=== PATIENT | female | born 1975 | race Hispanic/Latino ===

== ENCOUNTER 2022-07-05 09:59 | Emergency (ER) | payer OTHER ==
[~2022-07-05] VITALS: Ht 160 cm; Wt 79.4 kg
[2022-07-05 10:12] VITALS: BP 149/88
[2022-07-05] MEDS ORDERED: CYCL5TAB PO (10:12)
[2022-07-05] MEDS ORDERED: KETO10TA2 PO (10:12)
[2022-07-05] MEDS ORDERED: KETOROLAC 15MG/ML VIAL (15MG/ML) IM ONE (10:30)
[2022-07-05] MEDS ORDERED: CYCLOBENZAPRINE HCL 10 MG TABLET PO ONE (10:30)
== END 2022-07-05 10:36 | disposition home or self-care (01) ==
LOC: EDH 09:59
DX: Z04.1 Encounter for examination and observation following transport accident (principal); M62.830 Muscle spasm of back; V89.2XXA Person injured in unspecified motor-vehicle accident, traffic, initial encounter; Y93.89 Activity, other specified; Y92.89 Other specified places as the place of occurrence of the external cause; Y99.8 Other external cause status
CPT/HCPCS: 99283; 96372; J1885